=== PATIENT | female | born 1950 | race Caucasian/White ===

== ENCOUNTER 2017-10-29 19:55 | Emergency (ER) | payer MEDICARE ==
[~2017-10-29] VITALS: Ht 157.5 cm; Wt 75.0 kg
[2017-10-29] MEDS ORDERED: GABAPENTIN (20:13)
[2017-10-29] MEDS ORDERED: FLEXERIL (20:13)
[2017-10-29] MEDS ORDERED: HYDR1TAB16 PO (20:13)
[2017-10-29] MEDS ORDERED: MORPHINE PO (20:13)
[2017-10-29] MEDS ORDERED: MELOXICAM (20:13)
[2017-10-29] MEDS ORDERED: AMLODIPINE (20:14)
[2017-10-29] MEDS ORDERED: BENAZEPRIL (20:14)
[2017-10-29] MEDS ORDERED: ATOR20TA9 PO (20:15)
[2017-10-29] MEDS ORDERED: NEXIUM (20:15)
[2017-10-29] MEDS ORDERED: HYDROmorphone 1 MG/ML, 1ML IM ONE (20:30)
[2017-10-29] MEDS ORDERED: CYCLOBENZAPRINE 10 MG TABLET PO ONE (20:30)
[2017-10-29] MEDS ORDERED: HYDROmorphone 2 MG/ML, 1ML ONE (20:48)
[2017-10-29] MEDS ORDERED: CYCLOBENZAPRINE 10 MG TABLET ONE (20:48)
[2017-10-29 22:36] VITALS: BP 114/95
== END 2017-10-29 22:47 | disposition home or self-care (01) ==
LOC: ED 22:05
DX: S39.012A Strain of muscle, fascia and tendon of lower back, initial encounter (principal); M51.34 Other intervertebral disc degeneration, thoracic region; I10 Essential (primary) hypertension; W01.0XXA Fall on same level from slipping, tripping and stumbling without subsequent striking against object, initial encounter; Y93.89 Activity, other specified; Y92.89 Other specified places as the place of occurrence of the external cause; Y99.8 Other external cause status
CPT/HCPCS: 72110; 96372; 99284; J1170

== ENCOUNTER → 2018-03-26 | Outpatient (CLI) | payer MEDICARE ==
[~2018-03-26] MED LIST: AMLODIPINE; ATOR20TA9 PO; BENAZEPRIL; FLEXERIL; GABAPENTIN; HYDR1TAB16 PO; MELOXICAM; MORPHINE PO; NEXIUM
== END | disposition home or self-care (01) ==
LOC: CFH 13:02
PROVIDERS: ATTEND Neurological Surgery
DX: M51.36 Other intervertebral disc degeneration, lumbar region (principal); M25.559 Pain in unspecified hip; M85.80 Other specified disorders of bone density and structure, unspecified site; K57.30 Diverticulosis of large intestine without perforation or abscess without bleeding; I70.0 Atherosclerosis of aorta; Z90.49 Acquired absence of other specified parts of digestive tract
CPT/HCPCS: 72131; 72192

== ENCOUNTER → 2018-07-03 | Outpatient (CLI) | payer MEDICARE ==
[~2018-07-03] MED LIST changes: +ATOR20TA37 PO; -ATOR20TA9 PO
[2018-07-03 16:12] LABS: CHLORIDE 107 mmol/L (98-107)
[2018-07-03 16:30] LABS: ALANINE AMINOTRANSFERASE 39 U/L (12-78); ALBUMIN 3.7 g/dL (3.4-5.0); ALKALINE PHOSPHATASE 223 U/L (45-117); ANION GAP 5 mmol/L (5-15); BILIRUBIN,TOTAL 0.5 mg/dL (0.2-1.0); CALCIUM 8.5 mg/dL (8.5-10.1); CHOL/HDL RATIO 2.5; CHOLESTEROL, TOTAL 142 mg/dL (140-239); CREATININE 0.94 mg/dL (0.55-1.02); HDL CHOL % 39 % (28-40); HDL CHOLESTEROL (DIRECT) 56 mg/dL (40-60); LDL CHOLESTEROL,CALCULATED 70 mg/dL (54-169); LDL/HDL RATIO 1.3 (0.5-3.0); TOTAL PROTEIN 7.3 g/dL (6.4-8.2); TRIGLYCERIDES 78 mg/dL (50-200); VLDL CHOLESTEROL 16 mg/dL (0-25)
== END | disposition home or self-care (01) ==
LOC: CFH 12:59
PROVIDERS: ATTEND Family Medicine
DX: F32.9 Major depressive disorder, single episode, unspecified (principal); I10 Essential (primary) hypertension
CPT/HCPCS: 36415; 80053; 80061; 84443

== ENCOUNTER → 2018-07-31 | Outpatient (CLI) | payer MEDICARE | END | disposition home or self-care (01) | LOC: CFH 14:27 | PROVIDERS: ATTEND Family Medicine | DX: R10.13 Epigastric pain (principal) | CPT/HCPCS: 36415; 86677 ==

== ENCOUNTER 2019-09-08 17:11 | Emergency (ER) | payer MEDICARE ==
[~2019-09-08] VITALS: Ht 154.9 cm; Wt 81.7 kg
--- NOTE | 2019-09-08 17:43 | NUR ---
PT RESTING CALMLY IN BED AT THIS TIME. PT PLACED IN HOSPITAL GOWN, ON VITALS MONITORS. WILL CONTINUE TO MONITOR.
--- NOTE | 2019-09-08 18:52 | NUR ---
PT UP FOR RRECHECK. RAD HAS RESULTED.
--- NOTE | 2019-09-08 19:15 | NUR ---
LAB IN TO DRAW PT BLOOD AT THIS TIME.
[2019-09-08 19:27] LABS: BASOPHILS # (AUTO) 0.04 x10^3/uL (0-0.1); BASOPHILS % (AUTO) 0 % (0-1); EOSINOPHILS % (AUTO) 0 % (1-7); LYMPHOCYTES # (AUTO) 1.69 x10^3/uL (1-3.4); LYMPHOCYTES % (AUTO) 10 % (22-44); MD NO; MEAN CORPUSCULAR HEMOGLOBIN 27.7 pg (27.0-34.8); MEAN CORPUSCULAR HGB CONC 32.5 g/dL (32.4-35.8); MEAN CORPUSCULAR VOLUME 85.3 fL (80-100); MEAN PLATELET VOLUME 8.7 fL (7.4-10.4); MONOCYTES # (AUTO) 0.25 x10^3/uL (0.2-0.8); MONOCYTES % (AUTO) 2 % (2-9); NEUTROPHILS # (AUTO) 14.82 x10^3/uL (1.8-6.8); NEUTROPHILS % (AUTO) 88 % (42-75); PLATELET COUNT 447 x10^3/uL (130-400); RED BLOOD COUNT 4.86 x10^6/uL (3.82-5.3); RED CELL DISTRIBUTION WIDTH 13.8 % (9.6-15.2)
[2019-09-08] MEDS ORDERED: SODIUM CHLORIDE FLUSH 10ML SYR IVF ONE (19:30)
[2019-09-08 19:35] LABS: ALANINE AMINOTRANSFERASE 19 U/L (12-78); ALBUMIN 3.3 g/dL (3.4-5.0); ANION GAP 7 mmol/L (5-15); CALCIUM 9.3 mg/dL (8.5-10.1); CHLORIDE 107 mmol/L (98-107); CREATININE 0.87 mg/dL (0.55-1.02)
[2019-09-08 19:40] LABS: ALKALINE PHOSPHATASE 186 U/L (45-117); BILIRUBIN,TOTAL 0.2 mg/dL (0.2-1.0); TOTAL PROTEIN 7.5 g/dL (6.4-8.2); TROPONIN I < 0.015 ng/mL (0.000-0.045)
--- NOTE | 2019-09-08 20:38 | NUR ---
PIV placed in patient at this time.
--- NOTE | 2019-09-08 20:47 | NUR ---
PT ABLE TO AMBULATE TO BATHROOM STEADILY ON OWN. IV PLACED FOR ORDERED CTA. PT RESTING CALMLY IN BED AT THIS TIME. WILL CONTINUE TO MONITOR.
--- NOTE | 2019-09-08 20:55 | NUR ---
REPORT GIVEN TO MARY EUCEDA
--- NOTE | 2019-09-08 20:57 | NUR ---
PT REPORT FROM [facility]. PT CARE TO BE ASSUMED. PT AWAITING CTA
--- NOTE | 2019-09-08 21:15 | NUR ---
CT called, ct informed this rn that pt is next in line for cta.
[2019-09-08] MEDS ORDERED: MORP-29 PO (21:48)
[2019-09-08] MEDS ORDERED: BENA40TA3 PO (21:48)
[2019-09-08] MEDS ORDERED: GABA600T7 PO (21:48)
[2019-09-08] MEDS ORDERED: HYDR-3245 PO (21:48)
[2019-09-08] MEDS ORDERED: AMLO10TA8 PO (21:48)
[2019-09-08] MEDS ORDERED: ATOR10TA9 PO (21:48)
[2019-09-08] MEDS ORDERED: OMNIPAQUE 350 MG/ML, 75ML BOTTLE ONE (21:51)
[2019-09-08 21:54] VITALS: BP 106/64
--- NOTE | 2019-09-08 21:55 | NUR ---
PT RETURNED FROM CT. REPORTS NO IMPROVMENT IN BREATHING. OCCASIONAL CONGESTED COUGH NOTED. RESP OTHERWISE UNLABORED. SPEECH CLEAR, ABLE TO SPEAK IN COMPLETE SENTENCES.
--- NOTE | 2019-09-08 22:03 | NUR ---
DR JARAMILLO AT [facility]
== END 2019-09-08 22:18 | disposition home or self-care (01) ==
LOC: ED 17:42
DX: J15.9 Unspecified bacterial pneumonia (principal); R06.02 Shortness of breath; I10 Essential (primary) hypertension; G89.29 Other chronic pain
CPT/HCPCS: 36415; 71045; 71275; 80053; 83880; 84484; 85025; 93005; 99285; Q9967

== ENCOUNTER → 2019-11-01 | Outpatient (CLI) | payer MEDICARE ==
[~2019-11-01] MED LIST changes: +AMLO10TA8 PO; +ATOR10TA9 PO; +BENA40TA3 PO; +GABA600T7 PO; +HYDR-3245 PO; +MORP-29 PO
== END | disposition home or self-care (01) ==
LOC: LAB 16:10
PROVIDERS: ATTEND Registered Nurse
DX: J18.9 Pneumonia, unspecified organism (principal)
CPT/HCPCS: 87015; 87070; 87102; 87116; 87205; 87206

== ENCOUNTER 2019-12-07 13:34 | Outpatient (CLI) | payer MEDICARE ==
[~2019-12-07 13:34] MED LIST changes: -FLEXERIL; +FLEXERIL PO; -MELOXICAM; +MELOXICAM PO
[2019-12-27] MEDS ORDERED: MORP-29 PO (14:30)
[2019-12-27] MEDS ORDERED: OMEP40CA42 PO (14:30)
[2019-12-27] MEDS ORDERED: DULO30CA2 PO (14:30)
[2019-12-27] MEDS ORDERED: ALBUTEROL SULFATE INH (14:30)
[2019-12-27] MEDS ORDERED: HYDR-3245 PO (14:30)
== END 2019-12-07 23:59 | disposition home or self-care (01) ==
LOC: CFH 13:34
PROVIDERS: ATTEND Registered Nurse
DX: J18.9 Pneumonia, unspecified organism (principal); J98.4 Other disorders of lung
CPT/HCPCS: 71250

== ENCOUNTER → 2019-12-27 | Outpatient (CLI) | payer MEDICARE ==
[~2019-12-27] MED LIST changes: +ALBUTEROL SULFATE INH; +DULO30CA2 PO; +OMEP40CA42 PO
[2019-12-27 15:47] LABS: BASOPHILS # (AUTO) 0.02 x10^3/uL (0-0.1); BASOPHILS % (AUTO) 0 % (0-1); EOSINOPHILS # (AUTO) 0.08 x10^3/uL (0-0.4); EOSINOPHILS % (AUTO) 1 % (1-7); LYMPHOCYTES # (AUTO) 2.31 x10^3/uL (1-3.4); LYMPHOCYTES % (AUTO) 24 % (22-44); MD NO; MEAN CORPUSCULAR HEMOGLOBIN 27.5 pg (27.0-34.8); MEAN CORPUSCULAR HGB CONC 32.2 g/dL (32.4-35.8); MEAN CORPUSCULAR VOLUME 85.4 fL (80-100); MEAN PLATELET VOLUME 9.1 fL (7.4-10.4); MONOCYTES # (AUTO) 0.53 x10^3/uL (0.2-0.8); MONOCYTES % (AUTO) 6 % (2-9); NEUTROPHILS # (AUTO) 6.66 x10^3/uL (1.8-6.8); NEUTROPHILS % (AUTO) 69 % (42-75); PLATELET COUNT 391 x10^3/uL (130-400); RED BLOOD COUNT 5.35 x10^6/uL (3.82-5.3); RED CELL DISTRIBUTION WIDTH 15.6 % (9.6-15.2)
[2019-12-27 15:54] LABS: INTERNATIONAL NORMALIZED RATIO 0.96 (0.93-1.1); PROTHROMBIN TIME 9.9 Seconds (9.6-11.5)
[2019-12-27 15:55] LABS: ALBUMIN 3.8 g/dL (3.4-5.0); ANION GAP 7 mmol/L (5-15); CALCIUM 9.1 mg/dL (8.5-10.1); CHLORIDE 104 mmol/L (98-107)
[2019-12-27 16:00] LABS: ALANINE AMINOTRANSFERASE 74 U/L (12-78); ALKALINE PHOSPHATASE 378 U/L (45-117); BILIRUBIN,TOTAL 0.6 mg/dL (0.2-1.0); CREATININE 1.02 mg/dL (0.55-1.02); TOTAL PROTEIN 8.3 g/dL (6.4-8.2)
== END | disposition home or self-care (01) ==
LOC: STAR 13:50
PROVIDERS: ATTEND Internal Medicine
DX: Z01.818 Encounter for other preprocedural examination (principal); R05 Cough; Z20.828 Contact with and (suspected) exposure to other viral communicable diseases
CPT/HCPCS: 36415; 80053; 85025; 85610; 85730; 87635; 93005

== ENCOUNTER 2019-12-31 08:47 | Day surgery (SDC) | payer MEDICARE ==
[~2019-12-31] VITALS: Ht 154.9 cm; Wt 79.1 kg
[2019-12-31] MEDS ORDERED: LACTATED RINGERS 1,000 ML IV SCH (09:23)
[2019-12-31] MEDS ORDERED: SODIUM CHLORIDE 0.9% 1,000 ML IV SCH (09:24)
[2019-12-31 09:25] VITALS: BP 139/80
[2019-12-31] MEDS ORDERED: CHLORHEXIDINE 15 ML UDC MM ONE (09:30)
[2019-12-31] MEDS ORDERED: FENTANYL PF 100 MCG/2ML ONE ×2 (10:47→10:48)
[2019-12-31] MEDS ORDERED: MIDAZOLAM 1 MG/ML, 5ML ONE ×2 (10:48)
== END 2019-12-31 14:35 | disposition home or self-care (01) ==
LOC: OUT 08:47
PROVIDERS: ATTEND Internal Medicine
DX: R05 Cough (principal); J18.8 Other pneumonia, unspecified organism; F12.90 Cannabis use, unspecified, uncomplicated; Z88.0 Allergy status to penicillin; Z91.048 Other nonmedicinal substance allergy status; Z79.899 Other long term (current) drug therapy; Z87.891 Personal history of nicotine dependence; Z82.49 Family history of ischemic heart disease and other diseases of the circulatory system
CPT/HCPCS: 31624; 87015; 87070; 87102; 87116; 87205; 87206; 99152; 99153; J2250; J3010; J7120

== ENCOUNTER → 2020-02-28 | Outpatient (CLI) | payer MEDICARE | END | disposition home or self-care (01) | LOC: CFH 15:54 | PROVIDERS: ATTEND Internal Medicine | DX: R91.8 Other nonspecific abnormal finding of lung field (principal) | CPT/HCPCS: 71250 ==